=== PATIENT | male | born 2000 | race American Indian/Alaskan Native ===

== ENCOUNTER 2022-02-25 07:00 | Emergency (ER) | payer SELFPAY ==
--- NOTE | 2022-02-25 19:01 | Emergency Department Report ---
ED General Adult HPI - General Chief complaint: Pain General Stated complaint: CHEST PAIN/DIZZINESS Time Seen by Provider: 02/25/22 18:56 Source: patient Mode of arrival: Ambulatory Limitations: No Limitations - History of Present Illness Initial comments: Patient is a 21-year-old male who presents complaining of pain "all over my body." He states that this has been just since today but yesterday he developed a rash on his face and chest. He denies any sore throat or other respiratory symptoms no vomiting or diarrhea. He has had some dizziness. He denies any known ill contacts. Associated Symptoms: rash. denies: confusion, cough, diaphoresis, fever/chills, headaches, loss of appetite, malaise, nausea/vomiting, shortness of breath, syncope, weakness - Related Data Allergies Allergy/AdvReac Type Severity Reaction Status Date / Time No Known Allergies Allergy Verified 02/25/22 14:55 ED Review of Systems ROS: Stated complaint: CHEST PAIN/DIZZINESS Other details as noted in HPI Comment: All other systems reviewed and negative Constitutional: denies: chills, fever Eyes: denies: eye pain, eye discharge, vision change ENT: denies: ear pain, throat pain Respiratory: denies: cough, shortness of breath, wheezing Cardiovascular: other (Generalized body pain including his chest). denies: palpitations Endocrine: no symptoms reported Gastrointestinal: denies: abdominal pain, nausea, diarrhea Genitourinary: denies: urgency, dysuria Musculoskeletal: as per HPI Skin: as per HPI Neurological: denies: headache, weakness, paresthesias Psychiatric: denies: anxiety, depression Hematological/Lymphatic: denies: easy bleeding, easy bruising ED Past Medical Hx - Past Medical History Previous Medical History?: No - Surgical History Past Surgical History?: No - Social History Smoking Status: Never Smoker Substance Use Type: None ED Physical Exam - General Limitations: No Limitations General appearance: alert, in no apparent distress - Head Head exam: Present: atraumatic, normocephalic - Eye Eye exam: Present: normal appearance - ENT ENT exam: Present: mucous membranes moist - Neck Neck exam: Present: normal inspection, full ROM. Absent: tenderness, meningismus - Respiratory Respiratory exam: Present: normal lung sounds bilaterally. Absent: respiratory distress, wheezes - Cardiovascular Cardiovascular Exam: Present: regular rate, normal rhythm. Absent: systolic murmur, diastolic murmur, rubs, gallop - GI/Abdominal GI/Abdominal exam: Present: soft, normal bowel sounds. Absent: distended, tenderness - Rectal Rectal exam: Present: deferred - Extremities Exam Extremities exam: Present: normal inspection - Back Exam Back exam: Present: normal inspection - Neurological Exam Neurological exam: Present: alert, oriented X3 - Psychiatric Psychiatric exam: Present: normal affect, normal mood - Skin Skin exam: Present: warm, dry, intact, normal color, rash (There is a diffuse rash that is pustules and papules most significantly on the face and trunk. Scattered on the arms as well. Some of them are crusted over.) ED Course Vital Signs 02/25/22 19:37 Pulse Rate 76 Respiratory 12 Rate Blood Pressure 122/73 [Left] O2 Sat by Pulse 100 Oximetry ED Medical Decision Making - Medical Decision Making Patient is a 21-year-old male with myalgias and rash as well as some mild dizziness ongoing since yesterday.. He denies any sexual activity ever. No known ill contacts or exposure to monkey pox. No recent travel. Rash however is likely monkey pox. We will have him follow-up with [facility] and recommend ibuprofen for pain in the meantime. Critical care attestation.: If time is entered above; I have spent that time in minutes in the direct care of this critically ill patient, excluding procedure time. ED Disposition Clinical Impression: Rash Disposition: 01 HOME / SELF CARE / HOMELESS Is pt being admited?: No Condition: Stable Instructions: Rash, Adult, [id number] Additional Instructions: Rash is likely monkey pox. You must follow-up with the health department clinic for viral testing. Go to [place] or [facility] if he has any worsening of his symptoms as well as follow-up with his primary care doctor this week. Referrals: [facility] [Outside] - 3-5 Days [facility] Dept[facility] [Outside] - 3-5 Days Forms: Work/School Release Form(ED) Time of Disposition: 19:09
[2022-02-25 19:38] VITALS: BP 122/73
== END 2022-02-25 19:38 | disposition home or self-care (01) ==
LOC: ED 07:00
DX: R21 Rash and other nonspecific skin eruption (principal)
CPT/HCPCS: 99282